=== PATIENT | female | born 1990 | race African-American/Black ===

== ENCOUNTER 2017-11-28 16:46 | Emergency (ER) | payer SELFPAY ==
[2017-11-28] MEDS ORDERED: HYDROmorphone 0.5 MG/0.5 ML SYRINGE IVPUSH ONE (17:38)
[2017-11-28] MEDS ORDERED: Sodium Chloride 0.9% 1,000 ML IV SCH (17:45)
--- NOTE | 2017-11-28 17:48 | EDM.PDOC ---
ED HPI GENERAL MEDICAL PROBLEM - General Chief Complaint: Abdominal Pain Stated Complaint: LOWER ABDOMINAL PAINS Time Seen by Provider: 11/28/17 17:10 Source of Information: Reports: Patient History Limitations: Reports: No Limitations - History of Present Illness INITIAL COMMENTS - FREE TEXT/NARRATIVE: Patient is a 27-year-old female sitting weeks who presents ED complaining of bilateral adnexa pain. Patient states symptoms started this morning when she woke. This is worsened throughout the course the day. She is mildly nauseated with no emesis. States she's felt constipated with starting for sulfate and also taking vitamins. There's been no diarrhea. No dominant fever. No painful urination. No abnormal vaginal discharge. This is her first . She did have ultrasound by Dr. Ojeda to verify intrauterine. Patient last had a bowel movement this morning described as hard requiring straining. No blood present. Pain is worsened with walking relieved with sitting. She has no additional past medical history gastric taking no other medications. Surgical history none. She does not smoke, use alcohol, or use recreational drugs. 1, para 0, miscarriage 0, 0. Abdominal Pain Score (Numeric/FACES): 10 - Related Data Allergies Allergy/AdvReac Type Severity Reaction Status Date / Time No Known Allergies Allergy Verified 11/28/17 17:00 Home Meds: Home Meds Ferrous Sulfate [Iron] 325 mg PO DAILY 11/28/17 [History] Past Medical History - Past Health History Medical/Surgical History: Denies Medical/Surgical History Social & Family History - Family History Family Medical History: Noncontributory - Tobacco Use Smoking Status *Q: Never Smoker - Caffeine Use Caffeine Use: Reports: None - Recreational Drug Use Recreational Drug Use: No ED ROS GENERAL - Review of Systems Review Of Systems: ROS reveals no pertinent complaints other than HPI. ED EXAM, GI/ABD - Physical Exam Exam: See Below Exam Limited By: No Limitations General Appearance: Alert, WD/WN, Mild Distress Ears: Hearing Grossly Normal Nose: Normal Inspection Throat/Mouth: Normal Voice, No Airway Compromise Neck: Normal Inspection, Supple Respiratory/Chest: No Respiratory Distress, Lungs Clear, Normal Breath Sounds, No Accessory Muscle Use, Chest Non-Tender Cardiovascular: Normal Peripheral Pulses, Regular Rate, Rhythm GI/Abdominal Exam: Normal Bowel Sounds, Soft, No Organomegaly, No Distention, Tender (Bilateral adnexal region. Negative McBurney's point. Negative Verma sign. On examination of the left lower quadrant there is an area that is firm to touch concerning for increased stool. ) (Female) Exam: Deferred Back Exam: Normal Inspection. No: CVA Tenderness (L), CVA Tenderness (R) Extremities: Normal Inspection Neurological: Alert, Oriented, CN II-XII Intact, Normal Cognition, No Motor/ Sensory Deficits Psychiatric: Normal Affect, Normal Mood Skin Exam: Warm, Dry, Intact, Normal Color, No Rash Course - Vital Signs Last Recorded V/S: Last Vital Signs Temp 98.5 F 11/28/17 16:55 Pulse 79 11/28/17 16:55 Resp 18 11/28/17 16:55 BP 112/66 11/28/17 16:55 Pulse Ox 100 11/28/17 16:55 - Orders/Labs/Meds Orders: Active Orders 24 hr Category Date Time Status OB Ltd 1 or More Fetus [US] Stat Exams 11/28/17 17:38 Taken Sodium Chloride 0.9% [Normal Saline] 1,000 ml Med 11/28/17 17:45 Active IV ASDIRECTED Medication Orders Sodium Chloride (Normal Saline) 1,000 mls @ 150 mls/hr IV ASDIRECTED SONDRA Last Admin: 11/28/17 17:49 Dose: 150 mls/hr Labs: Laboratory Tests 11/28/17 11/28/17 11/28/17 Range/Units 17:35 17:35 17:35 WBC 8.34 (3.98-10.04) K/mm3 RBC 4.68 (3.98-5.22) M/mm3 Hgb 11.1 L (11.2-15.7) gm/L Hct 33.6 L (34.1-44.9) % MCV 71.8 L (79.4-94.8) fl MCH 23.7 L (25.6-32.2) pg MCHC 33.0 (32.2-35.5) g/dl RDW Std Deviation 36.7 (36.4-46.3) fL Plt Count 223 (182-369) K/mm3 MPV 11.0 (9.4-12.3) fl Neutrophils % (Manual) 55 (40-60) % Band Neutrophils % 0 (0-10) % Lymphocytes % (Manual) 30 (20-40) % Atypical Lymphs % 0 % Monocytes % (Manual) 13 H (2-10) % Eosinophils % (Manual) 0 L (0.7-5.8) % Basophils % (Manual) 1 (0.1-1.2) Promyelocytes % 1 Platelet Estimate Adequate Plt Morphology Comment Normal Microcytosis 3+ marked RBC Morph Comment Not Reportable Sodium 136 (136-145) mEq/L Potassium 3.7 (3.5-5.1) mEq/L Chloride 103 (98-107) mEq/L Carbon Dioxide 24 (21-32) mEq/L Anion Gap 12.7 (5-15) BUN 6 L (7-18) mg/dL Creatinine 0.5 L (0.55-1.02) mg/dL Est Cr Clr Drug Dosing 150.79 mL/min Estimated GFR (MDRD) > 60 (>60) mL/min BUN/Creatinine Ratio 12.0 L (14-18) Glucose 94 (74-106) mg/dL Calcium 8.9 (8.5-10.1) mg/dL Total Bilirubin 0.2 (0.2-1.0) mg/dL AST 18 (15-37) U/L ALT 20 (14-59) U/L Alkaline Phosphatase 59 (46-116) U/L C-Reactive Protein 1.3 H* (<1.0) mg/dL Total Protein 8.1 (6.4-8.2) g/dl Albumin 3.4 (3.4-5.0) g/dl Globulin 4.7 gm/dL Albumin/Globulin Ratio 0.7 L (1-2) TSH 3rd Generation 1.951 (0.358-3.74) uIU/mL HCG, Quant 14042.0 mIU/mL Urine Color (Yellow) Urine Appearance (Clear) Urine pH (5.0-8.0) Ur Specific [place] (1.005-1.030) Urine Protein (Negative) Urine Glucose (UA) (Negative) Urine Ketones (Negative) Urine Occult Blood (Negative) Urine Nitrite (Negative) Urine Bilirubin (Negative) Urine Urobilinogen (0.2-1.0) Ur Leukocyte Esterase (Negative) Urine RBC (0-5) /hpf Urine WBC (0-5) /hpf Ur Epithelial Cells (0-5) /hpf Urine Bacteria (FEW) /hpf Urine Mucus (FEW) /hpf //18 Range/Units 17:50 WBC (3.98-10.04) K/mm3 RBC (3.98-5.22) M/mm3 Hgb (11.2-15.7) gm/L Hct (34.1-44.9) % MCV (79.4-94.8) fl MCH (25.6-32.2) pg MCHC (32.2-35.5) g/dl RDW Std Deviation (36.4-46.3) fL Plt Count (182-369) K/mm3 MPV (9.4-12.3) fl Neutrophils % (Manual) (40-60) % Band Neutrophils % (0-10) % Lymphocytes % (Manual) (20-40) % Atypical Lymphs % % Monocytes % (Manual) (2-10) % Eosinophils % (Manual) (0.7-5.8) % Basophils % (Manual) (0.1-1.2) Promyelocytes % Platelet Estimate Plt Morphology Comment Microcytosis RBC Morph Comment Sodium (136-145) mEq/L Potassium (3.5-5.1) mEq/L Chloride (98-107) mEq/L Carbon Dioxide (21-32) mEq/L Anion Gap (5-15) BUN (7-18) mg/dL Creatinine (0.55-1.02) mg/dL Est Cr Clr Drug Dosing mL/min Estimated GFR (MDRD) (>60) mL/min BUN/Creatinine Ratio (14-18) Glucose (74-106) mg/dL Calcium (8.5-10.1) mg/dL Total Bilirubin (0.2-1.0) mg/dL AST (15-37) U/L ALT (14-59) U/L Alkaline Phosphatase (46-116) U/L C-Reactive Protein (<1.0) mg/dL Total Protein (6.4-8.2) g/dl Albumin (3.4-5.0) g/dl Globulin gm/dL Albumin/Globulin Ratio (1-2) TSH 3rd Generation (0.358-3.74) uIU/mL HCG, Quant mIU/mL Urine Color Light yellow (Yellow) Urine Appearance Clear (Clear) Urine pH 7.5 (5.0-8.0) Ur Specific [place] 1.015 (1.005-1.030) Urine Protein Negative (Negative) Urine Glucose (UA) Negative (Negative) Urine Ketones Negative (Negative) Urine Occult Blood Negative (Negative) Urine Nitrite Negative (Negative) Urine Bilirubin Negative (Negative) Urine Urobilinogen 0.2 (0.2-1.0) Ur Leukocyte Esterase Negative (Negative) Urine RBC Not seen (0-5) /hpf Urine WBC Not seen (0-5) /hpf Ur Epithelial Cells 0-5 (0-5) /hpf Urine Bacteria Not seen (FEW) /hpf Urine Mucus Not seen (FEW) /hpf Meds: Medications Generic Name Dose Route Start Last Admin Trade Name Freq PRN Reason Stop Dose Admin Sodium Chloride 1,000 mls @ 150 mls/hr 11/28/17 17:45 11/28/17 17:49 Normal Saline IV 150 mls/hr ASDIRECTED SONDRA Administration Discontinued Medications Generic Name Dose Route Start Last Admin Trade Name Freq PRN Reason Stop Dose Admin Hydromorphone HCl 0.25 mg 11/28/17 17:38 11/28/17 17:48 Dilaudid IVPUSH 11/28/17 17:39 0.25 mg ONETIME ONE Administration - Re-Assessments/Exams Free Text/Narrative Re-Assessment/Exam: IV established with NS 150mls/hr and dilaudid 0.25mg IVP. Initial labs and studies will include: CBC, chem 14, CRP, hCG quantitative, TSH , UA, abdomen limited ultrasound and also OB transvaginal ultrasound. Labs reviewed. Ultrasound IMPRESSION: 1. Single living intrauterine gestation with average gestational age of 16 weeks 1 day. 2. A 1.5 cm cyst is noted on the right ovary. 3. Areas of mixed echogenicity with the uterus most likely representing fibroids. Discussed results with patient and fiance. Pain has resolved. Do believe patients pain is associated to the stretching of the round ligament and also constipation. Unclear if fibroids are a factor as well. She will follow up with ROBOTICS ENGINEER this coming week for reevaluation. He did take Tylenol as needed for discomfort. In addition will start MiraLAX one capful every day with copious amounts water and increase in fiber intake. The patient remained hemodynamically stable while under my care in the E.D. I discussed the concerning symptoms for which to returnto the E.D. with the patient/family. The patient/family verbalized understanding. All questions were answered. Discharge instructions as documented. Departure - Departure Time of Disposition: 21:18 Disposition: Home, Self-Care 01 Condition: Good Clinical Impression: Abdominal pain Qualifiers: Abdominal location: lower abdomen, unspecified Qualified Code(s): R10.30 - Lower abdominal pain, unspecified Fibroids Qualifiers: Uterine leiomyoma location: unspecified location Qualified Code(s): D25.9 - Leiomyoma of uterus, unspecified Constipation Qualifiers: Constipation type: unspecified constipation type Qualified Code(s): K59.00 - Constipation, unspecified Qualifiers: Weeks of gestation: 16 weeks Qualified Code(s): Z3A.16 - 16 weeks gestation of - Discharge Information Instructions: High-Fiber Diet, Uterine Fibroids, Second Trimester of , [id number], Constipation, Adult, [id number] Referrals: Williams Ojeda MD [Primary Care Provider] - Forms: ED Department Discharge Additional Instructions: Take MiraLAX one capful every day with copious amounts of water. Increase fiber intake. For pain take Tylenol 650 mg every 4-6 hours as needed. Refrain from any activities that cause worsening pain. Call and make an appointment to be seen by Dr. Ojeda this coming week your ROBOTICS ENGINEER specialist. Please return to the ED if you develop any new or worsening symptoms. - My Orders Last 24 Hours: My Active Orders 11/28/17 17:38 OB Ltd 1 or More Fetus [US] Stat 11/28/17 17:45 Sodium Chloride 0.9% [Normal Saline] 1,000 ml IV ASDIRECTED - Assessment/Plan Last 24 Hours: My Active Orders 11/28/17 17:38 OB Ltd 1 or More Fetus [US] Stat 11/28/17 17:45 Sodium Chloride 0.9% [Normal Saline] 1,000 ml IV ASDIRECTED
--- NOTE | 2017-12-01 15:01 | US ---
Limited obstetrical ultrasound: Multiple real-time images were obtained transabdominally. Comparison: No prior obstetrical ultrasound. Dates: LMP: ? Current ultrasound: [facility] 05/14/18, gestational age 16 weeks 1 day presentation: Mobile Placenta: Posterior with no findings of placental previa or placental abruption. Other findings: Two heterogeneous areas are identified within the uterus most likely representing fibroid change measuring 8.1 cm and 9.3 cm. Maternal adnexa: Within normal limits Measurements: BPD: 3.31 cm - 16 weeks 2 days Head circumference: 11.91 cm - 15 weeks 6 days Abdominal circumference: 10.63 cm - 16 weeks 4 days Femur length: 1.98 cm - 15 weeks 6 days Estimated weight: 148 g (0 lbs. 5 oz.), estimated weight at the 82nd percentile Heart rate: 152 bpm Cervical length: 3.1 cm Impression: 1. Two lower uterine segment fibroids. 2. Single intrauterine gestation. Dates as noted above. 3. No other complicating process is seen at this time. Diagnostic code #2 I agree with preliminary report from [facility], finalized at 11/28/17, 9:52 PM Central Time
== END 2017-11-28 21:27 | disposition home or self-care (01) ==
LOC: JD.ED 16:46
DX: O99.612 Diseases of the digestive system complicating pregnancy, second trimester (principal); K59.00 Constipation, unspecified; O34.12 Maternal care for benign tumor of corpus uteri, second trimester; D25.9 Leiomyoma of uterus, unspecified; Z3A.16 16 weeks gestation of pregnancy
CPT/HCPCS: 36415; 76815; 80053; 81001; 84443; 84702; 85007; 85027; 86140; 96361; 96374; 99284; J1170; J7040; 99283

== ENCOUNTER 2017-11-29 05:41 | Emergency (ER) | payer SELFPAY ==
--- NOTE | 2017-11-29 06:13 | EDM.PDOC ---
ED HPI GENERAL MEDICAL PROBLEM - General Chief Complaint: Abdominal Pain Stated Complaint: ABDOMINAL PAIN/15 WKS Time Seen by Provider: 11/29/17 05:55 Source of Information: Reports: Patient, Old Records, Significant Other (Fiance ) History Limitations: Reports: No Limitations - History of Present Illness INITIAL COMMENTS - FREE TEXT/NARRATIVE: The patient is in her second trimester of . Medical records indicate that she was seen in this ED approximate 12 hours ago, yesterday evening, 2017 with a complaint of lower abdominal pain. No vomiting, diarrhea, or vaginal bleeding. Workup included a CBC, CMP, CRP, TSH, quantitative hCG, urinalysis, and transvaginal ultrasound, all of which was unremarkable. The ultrasound demonstrated a single live intrauterine at 16 weeks, 1 day , with a 1.5 cm right ovarian cyst, and uterine fibroids. The patient was felt to be suffering from round ligament pain, and discharged home with instructions to take Tylenol and MiraLAX, and follow-up with her Financial Services Manager, Dr. Ojeda. The patient now returns with the same complaint, with no improvement in her abdominal pain. No new symptoms, such as diarrhea or vaginal bleeding. She has had nausea a few times during this , but not recently. She has been constipated for the past 2 or 3 days. No urinary symptoms. No recent fever. She describes her abdominal pain as a sharp pain felt in the lower abdomen and pelvis. It waxes and wanes. She has not identified any modifiers. She states that she has been taking Tylenol, with inadequate relief. 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 ED EXAM - Physical Exam Exam: See Below Exam Limited By: No Limitations General Appearance: Alert, WD/WN, No Apparent Distress Eye Exam: Bilateral Eye: Normal Inspection Ears: Normal External Exam, Hearing Grossly Normal Nose: Normal Inspection, No Blood Throat/Mouth: Normal Inspection, Normal Lips, Normal Voice, No Airway Compromise Head: Atraumatic, Normocephalic Neck: Normal Inspection, Full Range of Motion Respiratory/Chest: No Respiratory Distress, Lungs Clear, Normal Breath Sounds, No Accessory Muscle Use Cardiovascular: Normal Peripheral Pulses, Regular Rate, Rhythm, No Edema, No Gallop, No JVD, No Murmur, No Rub GI/Abdominal Exam: Normal Bowel Sounds, Soft, No Organomegaly, No Distention, No Abnormal Bruit, Tender (Gravid uterus, consistent with dates, but lumpy. The uterus is tender to palpation. Nontender elsewhere.) Rectal Exam: Deferred Back Exam: Normal Inspection, Full Range of Motion. No: CVA Tenderness (L), CVA Tenderness (R) Extremities: Normal Inspection, Normal Range of Motion, No Pedal Edema, Normal Capillary Refill Neurological: Alert, Oriented, Normal Cognition, No Motor/Sensory Deficits Psychiatric: Normal Affect Skin Exam: Warm, Dry, Intact, Normal Color, No Rash Course - Vital Signs Last Recorded V/S: Last Vital Signs Temp 36.8 C 11/29/17 05:51 Pulse 72 11/29/17 05:51 Resp 18 11/29/17 05:51 BP 114/78 11/29/17 05:51 Pulse Ox 100 11/29/17 05:51 - Re-Assessments/Exams Free Text/Narrative Re-Assessment/Exam: 11/29/17 06:10 The patient presents with continued lower abdominal pain, but no new symptoms, such as emesis, diarrhea, or vaginal bleeding. She remains hemodynamically stable. She had an extensive but unremarkable workup just 12 hours ago. I do not see an indication to repeat any of that workup. I'm recommending that the patient continue to take Tylenol, then follow-up with her owner/photographer, Dr. Ojeda, as early as tomorrow. Departure - Departure Time of Disposition: 06:11 Disposition: Home, Self-Care 01 Condition: Good Clinical Impression: Discomfort during - Discharge Information Instructions: Abdominal Pain During , [id number] Referrals: Williams Ojeda MD [Primary Care Provider] - Forms: ED Department Discharge Additional Instructions: You were seen in the emergency room for continued lower abdominal pain associated with . A workup, including a CBC, CMP, CRP, TSH, quantitative hCG, urinalysis, and transvaginal ultrasound was performed just 12 hours ago, and was unremarkable. The cause of your pain is not entirely certain, but is MOST LIKELY due to round ligament pain, also known as discomfort of . Unfortunately, the only pain medication that you can safely take during is Tylenol. Follow-up with your Financial Services Manager, Dr. Ojeda, at the next available appointment. If any other problems, please do not hesitate to return to the ER.
== END 2017-11-29 06:19 | disposition home or self-care (01) ==
LOC: JD.ED 05:41
DX: O26.892 Other specified pregnancy related conditions, second trimester (principal); R10.31 Right lower quadrant pain
CPT/HCPCS: 99283

== ENCOUNTER 2018-11-22 17:12 | Emergency (ER) | payer MEDICAID, OTHER, SELFPAY ==
--- NOTE | 2018-11-22 18:14 | EDM.PDOC ---
ED HPI GENERAL MEDICAL PROBLEM - General Chief Complaint: Bite:Animal, Insect Stated Complaint: DOG BITE TO LEG Time Seen by Provider: 11/22/18 17:34 Source of Information: Reports: Patient, RN Notes Reviewed History Limitations: Reports: No Limitations - History of Present Illness INITIAL COMMENTS - FREE TEXT/NARRATIVE: Patient is a 28-year-old female who presents to the ED for the evaluation of a dog bite. The patient states that roughly at 4:45 PM she was bitten on the medial portion of her right calf by a beagle dog in her apartment building. This dog is unknown to her. There are 2 small puncture wounds to her medial right calf. The patient believes she is up-to-date on her vaccinations, as she just had a baby less than year ago. The police were informed of the dog bite, and the significant other in the room had a picture of an updated Rabies certificate for the dog. - Related Data Allergies Allergy/AdvReac Type Severity Reaction Status Date / Time No Known Allergies Allergy Verified 02/04/18 15:49 Home Meds: Home Meds Amoxicillin/Clavulanate K [Augmentin 875-125 MG] 1 tab PO BID #14 tablet [Rx] Past Medical History - Past Health History Medical/Surgical History: Denies Medical/Surgical History PATIENT CARE ASSOCIATE History: Reports: Fibroids, Other PATIENT CARE ASSOCIATE History: fibroids lower uterine segment Social & Family History - Family History Family Medical History: Noncontributory - Tobacco Use Smoking Status *Q: Never Smoker - Caffeine Use Caffeine Use: Reports: None - Recreational Drug Use Recreational Drug Use: No - Living Situation & Occupation Living situation: Reports: Single, Other (with friends) 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 GENERAL - Review of Systems Review Of Systems: See Below Constitutional: Reports: No Symptoms HEENT: Reports: No Symptoms Respiratory: Reports: No Symptoms Cardiovascular: Reports: No Symptoms Endocrine: Reports: No Symptoms GI/Abdominal: Reports: No Symptoms : Reports: No Symptoms Musculoskeletal: Reports: No Symptoms Skin: Reports: Wound (2 puncture wounds to medial R calf) Neurological: Reports: No Symptoms Psychiatric: Reports: No Symptoms Hematologic/Lymphatic: Reports: No Symptoms Immunologic: Reports: No Symptoms ED EXAM, ANIMAL BITE - Physical Exam Exam: See Below Exam Limited By: No Limitations General Appearance: Alert, WD/WN, No Apparent Distress Respiratory/Chest: No Respiratory Distress, Lungs Clear, Normal Breath Sounds, No Accessory Muscle Use, Chest Non-Tender Cardiovascular: Normal Peripheral Pulses, Regular Rate, Rhythm, No Murmur Extremities: Normal Inspection, Normal Range of Motion, Normal Capillary Refill Neurological: Alert, Oriented, Normal Cognition, Normal Gait, No Motor/Sensory Deficits Psychiatric: Normal Affect, Normal Mood Skin Exam: Normal Color, Warm/Dry, Other (2 small puncture wounds noted to her right medial calf. The area is somewhat tender to palpation.) Course - Vital Signs Last Recorded V/S: Last Vital Signs Temp 98.7 F 11/22/18 17:24 Pulse 65 11/22/18 17:24 Resp 18 11/22/18 17:24 BP 119/81 11/22/18 17:24 Pulse Ox 99 11/22/18 17:24 - Re-Assessments/Exams Free Text/Narrative Re-Assessment/Exam: 11/22/18 18:13 Patient resents to the ED for the evaluation of a dog bite to her right calf. The patient will be placed on Augmentin twice a day for 7 days. The wounds will be allowed to heal by primary intention. Departure - Departure Time of Disposition: 18:14 Disposition: Home, Self-Care 01 Condition: Fair Clinical Impression: Dog bite of calf Qualifiers: Encounter type: initial encounter Laterality: right Qualified Code(s): S81.851A - Open bite, right lower leg, initial encounter - Discharge Information *PRESCRIPTION DRUG MONITORING PROGRAM REVIEWED*: No *COPY OF PRESCRIPTION DRUG MONITORING REPORT IN PATIENT YOLY: No Prescriptions: Amoxicillin/Clavulanate K [Augmentin 875-125 MG] 1 tab PO BID #14 tablet Instructions: Animal Bite, Adult, [id number] Referrals: Williams Ojeda MD [Primary Care Provider] - Forms: ED Department Discharge Additional Instructions: You have been evaluated in the ED today for your dog bite. You were up-to-date on her tetanus vaccination as you have recently had a baby. You were provided with a prescription for antibiotics, Augmentin, please take one tab twice daily for 7 days. This may produce some diarrhea. Suggest that you start taking a probiotic if you are not guarding doing so. The antibiotics have been electronically sent to the [facility] pharmacy located by [facility]. Please return to the ED if your symptoms change or worsen.
== END 2018-11-22 18:31 | disposition home or self-care (01) ==
LOC: JD.ED 17:12
DX: S81.851A Open bite, right lower leg, initial encounter (principal); W54.0XXA Bitten by dog, initial encounter
CPT/HCPCS: 99283

== ENCOUNTER 2021-08-03 03:04 | Inpatient (IN) | payer SELFPAY ==
[~2021-08-03 03:04] MED LIST: Lidocaine 1.5% with EPINEPHrine 1:200,000 5 ML Amp ONE
[2021-08-03] MEDS ORDERED: Sodium Chloride 0.9% 10 ML Syringe FLUSH PRN (06:06)
[2021-08-03] MEDS ORDERED: Nalbuphine 10 MG/1 ML Vial IVPUSH PRN (06:06)
[2021-08-03] MEDS ORDERED: Ondansetron 4 MG Tab.DIS PO PRN (06:06)
[2021-08-03] MEDS ORDERED: Oxytocin/Lactated Ringers 10 UNIT/1,000 ML BAG IV SCH ×2 (06:15→10:00)
[2021-08-03] MEDS: Lactated Ringers 1,000 ML IV SCH ×2 (06:25→07:41)
[2021-08-03] MEDS ORDERED: Bupivacaine/fentaNYL/NS 100 ML Bag EPIDUR PRN (07:01)
[2021-08-03] MEDS ORDERED: fentaNYL 100 MCG/2 ML SDV EPIDUR PRN (07:01)
[2021-08-03] MEDS ORDERED: ePHEDrine 50 MG/ML SDV IVPUSH PRN (07:01)
[2021-08-03] MEDS ORDERED: diphenhydrAMINE 50 MG/ML SDV IVPUSH PRN (07:01)
[2021-08-03] MEDS ORDERED: Sodium Chloride 0.9% 10 ML Syringe FLUSH SCH (09:00)
[2021-08-03] MEDS ORDERED: Docusate Sodium 100 MG Cap PO PRN (12:20)
[2021-08-03] MEDS ORDERED: Benzocaine/Menthol 20%-0.5% Spray 78 GM Cannister TOP PRN (12:20)
[2021-08-03] MEDS ORDERED: Witch Hazel Medicated Pads 40/Jar TOP PRN (12:20)
[2021-08-03] MEDS ORDERED: Acetaminophen 325 MG Tab PO PRN (12:20)
[2021-08-03] MEDS: Ibuprofen 600 MG Tab PO PRN ×2 (12:40→20:36)
[2021-08-04] MEDS: Ibuprofen 600 MG Tab PO PRN ×2 (05:07→15:32)
== END 2021-08-04 16:30 | disposition home or self-care (01) | DRG 807 ==
LOC: JD.OB 03:04 → OBSVTOIN 11:50 → JD.OB 11:50
PROVIDERS: ADMIT Obstetrics & Gynecology; ATTEND Obstetrics & Gynecology
PROC: 10E0XZZ Delivery of Products of Conception, External Approach (ICD-10-PCS; principal; 2021-08-03)
PROC: 3E0R3BZ Introduction of Anesthetic Agent into Spinal Canal, Percutaneous Approach (ICD-10-PCS; 2021-08-03)
PROC: 00HU33Z Insertion of Infusion Device into Spinal Canal, Percutaneous Approach (ICD-10-PCS; 2021-08-03)
PROC: 10907ZC Drainage of Amniotic Fluid, Therapeutic from Products of Conception, Via Natural or Artificial Opening (ICD-10-PCS; 2021-08-03)
DX: O34.13 Maternal care for benign tumor of corpus uteri, third trimester (principal); Z37.0 Single live birth; Z3A.39 39 weeks gestation of pregnancy; Z20.822 Contact with and (suspected) exposure to COVID-19
CPT/HCPCS: 36415; 51702; 59025; 59409; 84112; 85025; 85461; 86850; 86900; 86901; A9270-GY; J2590; J2790; J3010; J7120; U0002

== ENCOUNTER 2021-11-22 13:29 | Emergency (ER) | payer SELFPAY ==
[2021-11-22] MEDS ORDERED: Cephalexin 500 MG Cap PO ONE (14:04)
== END 2021-11-22 14:39 | disposition home or self-care (01) ==
LOC: JD.ED 13:29
DX: N61.0 Mastitis without abscess (principal); Z79.899 Other long term (current) drug therapy; Z86.16 Personal history of COVID-19
CPT/HCPCS: 99283; A9270

== ENCOUNTER 2022-01-06 01:37 | Day surgery (SDC) | payer SELFPAY ==
[2022-01-06] MEDS ORDERED: Ondansetron 4 MG/2 ML SDV IVPUSH ONE (03:03)
[2022-01-06] MEDS ORDERED: HYDROmorphone 0.5 MG/0.5 ML Syringe IVPUSH ONE (03:03)
[2022-01-06] MEDS ORDERED: Lactated Ringers 1,000 ML IV SCH (03:15)
[2022-01-06] MEDS ORDERED: ceFAZolin 2 GM in Sodium Chloride 0.9% 50 ML IV ONE (11:00)
[2022-01-06] MEDS ORDERED: Bupivacaine 0.5% 30 ML SDV ONE (12:03)
[2022-01-06] MEDS ORDERED: Propofol 200 MG/20 ML SDV ONE (12:22)
[2022-01-06] MEDS ORDERED: Lidocaine 1% 4 ML ONE (12:22)
[2022-01-06] MEDS ORDERED: Rocuronium 50 MG/5 ML Vial ONE (12:22)
[2022-01-06] MEDS ORDERED: fentaNYL 100 MCG/2 ML SDV ONE ×2 (12:24→12:39)
[2022-01-06] MEDS ORDERED: ceFAZolin 2 GM Vial ONE (12:25)
[2022-01-06] MEDS ORDERED: Lactated Ringers 1,000 ML ONE (13:03)
[2022-01-06] MEDS ORDERED: Ondansetron 4 MG/2 ML SDV ONE (13:10)
[2022-01-06] MEDS ORDERED: Ketorolac 30 MG/ML SDV ONE (13:10)
[2022-01-06] MEDS ORDERED: Neostigmine Methylsulfate 10 MG/10 ML MDV ONE (13:14)
[2022-01-06] MEDS ORDERED: HYDROmorphone 0.5 MG/0.5 ML Syringe IVPUSH PRN (13:43)
[2022-01-06] MEDS ORDERED: Ondansetron 4 MG/2 ML SDV IVPUSH PRN ×2 (13:43→14:30)
[2022-01-06] MEDS ORDERED: diphenhydrAMINE 50 MG/ML SDV IVPUSH PRN (13:43)
[2022-01-06] MEDS ORDERED: fentaNYL 100 MCG/2 ML SDV IVPUSH PRN (13:43)
[2022-01-06] MEDS ORDERED: Acetaminophen/oxyCODONE 325-5 MG Tab PO PRN (14:30)
== END 2022-01-06 16:55 | disposition home or self-care (01) ==
LOC: JD.ED 01:37 → JD.SDS 10:19
PROVIDERS: ATTEND Obstetrics & Gynecology
DX: O00.101 Right tubal pregnancy without intrauterine pregnancy (principal); N83.511 Torsion of right ovary and ovarian pedicle; D25.9 Leiomyoma of uterus, unspecified; Z98.890 Other specified postprocedural states
CPT/HCPCS: 36415; 59151; 76817; 80053; 81001; 81025; 83690; 84702; 85025; 96361; 96374; 96375; 99285; A9270; J0690; J1170; J1885; J2405; J2704; J2710; J3010; J3490; J7120; 00840; 99140

== ENCOUNTER 2022-01-18 12:31 | Emergency (ER) | payer SELFPAY ==
[2022-01-18] MEDS ORDERED: Ketorolac 30 MG/ML SDV IM ONE (13:15)
[2022-01-18 13:43] LABS: CORONAVIRUS COVID-19 NAA NEGATIVE (NEGATIVE)
== END 2022-01-18 14:15 | disposition home or self-care (01) ==
LOC: JD.ED 12:31 → SUPCPDRO 12:31 → JD.ED 14:15
DX: J01.90 Acute sinusitis, unspecified (principal); B97.89 Other viral agents as the cause of diseases classified elsewhere; Z72.0 Tobacco use; Z86.16 Personal history of COVID-19; Z20.822 Contact with and (suspected) exposure to COVID-19
CPT/HCPCS: 0240U; 96372; 99284; J1885

== ENCOUNTER 2022-01-20 09:28 | Emergency (ER) | payer SELFPAY | END 2022-01-20 10:22 | disposition home or self-care (01) | LOC: JD.ED 09:28 | DX: J01.10 Acute frontal sinusitis, unspecified (principal); H66.001 Acute suppurative otitis media without spontaneous rupture of ear drum, right ear; Z86.16 Personal history of COVID-19 | CPT/HCPCS: 99283 ==

== ENCOUNTER 2022-05-18 12:13 | Emergency (ER) | payer SELFPAY ==
[2022-05-18] MEDS ORDERED: Ketorolac 30 MG/ML SDV IVPUSH ONE (13:19)
[2022-05-18] MEDS ORDERED: Sodium Chloride 0.9% 10 ML Syringe FLUSH PRN (13:19)
[2022-05-18] MEDS ORDERED: Sodium Chloride 0.9% 1,000 ML IV STA (13:19)
[2022-05-18 13:30] LABS: CORONAVIRUS COVID-19 NAA NEGATIVE (NEGATIVE)
== END 2022-05-18 15:58 | disposition home or self-care (01) ==
LOC: JD.ED 12:13
DX: J02.8 Acute pharyngitis due to other specified organisms (principal); B96.89 Other specified bacterial agents as the cause of diseases classified elsewhere; Z20.822 Contact with and (suspected) exposure to COVID-19
CPT/HCPCS: 0240U; 36415; 80053; 81001; 85025; 86140; 87651; 96361; 96374; 99283; J1885; J3490; J7030